=== PATIENT | female | born 1965 | race Caucasian/White ===

== ENCOUNTER 2019-11-12 09:58 | Outpatient (CLI) | payer OTHER, BC, SELFPAY ==
--- NOTE | 2019-11-12 | US_ITS ---
WS: [id number] RIGHT LOWER EXTREMITY VENOUS DOPPLER ULTRASOUND HISTORY: PAIN, SWELLING RIGHT LOWER LEG COMPARISON: None available. Normal 2-D, Doppler and augmentation and compressibility throughout the lower extremity venous struct ures. Additional imaging through the proximal calf veins also reveal no thrombus. Limited evaluation of the greater saphenous vein is patent with no thrombus. US/ROR venous duplex LE RT IMPRESSION: No DVT RIGHT lower extremity.
== END 2019-11-12 09:59 | disposition home or self-care (01) ==
LOC: RADOUTREAD 12:53
PROVIDERS: Visit Provider Nurse Practitioner Family
DX: Z76.89 Persons encountering health services in other specified circumstances (principal)

== ENCOUNTER → 2020-04-07 14:58 | Outpatient (BNVA) | payer BC, SELFPAY | PROVIDERS: Visit Provider Nurse Practitioner Family | DX: E03.9 Hypothyroidism, unspecified (principal); Z13.6 Encounter for screening for cardiovascular disorders; Z12.39 Encounter for other screening for malignant neoplasm of breast; L98.9 Disorder of the skin and subcutaneous tissue, unspecified; B07.8 Other viral warts; Z12.11 Encounter for screening for malignant neoplasm of colon; M15.9 Polyosteoarthritis, unspecified; G47.00 Insomnia, unspecified; Z68.31 Body mass index [BMI] 31.0-31.9, adult; F17.211 Nicotine dependence, cigarettes, in remission | CPT/HCPCS: 80053; 80061; 84443; 85025 ==

== ENCOUNTER → 2020-06-01 13:33 | Outpatient (BNVA) | payer BC, SELFPAY | PROVIDERS: Referring Provider Nurse Practitioner Family; Visit Provider Dermatology | DX: B07.8 Other viral warts (principal); D48.5 Neoplasm of uncertain behavior of skin; L57.0 Actinic keratosis; D48.9 Neoplasm of uncertain behavior, unspecified | CPT/HCPCS: 11900; 17000; 17003; 88304; 88305; 99203; 99204 ==

== ENCOUNTER → 2020-06-15 15:38 | Outpatient (BNVA) | payer BC, SELFPAY | PROVIDERS: Visit Provider Dermatology | DX: L92.0 Granuloma annulare (principal); B07.8 Other viral warts | CPT/HCPCS: 99212 ==

== ENCOUNTER → 2020-08-01 11:00 | Outpatient (BNVA) | payer BC, SELFPAY | PROVIDERS: Visit Provider Family Medicine | DX: E03.9 Hypothyroidism, unspecified (principal); E78.5 Hyperlipidemia, unspecified; G47.00 Insomnia, unspecified; J01.00 Acute maxillary sinusitis, unspecified; J20.9 Acute bronchitis, unspecified | CPT/HCPCS: 80053; 80061; 84443; 85025 ==

== ENCOUNTER → 2020-12-21 17:21 | Outpatient (BNVA) | payer BC, SELFPAY | PROVIDERS: Visit Provider Nurse Practitioner Family | DX: R10.9 Unspecified abdominal pain (principal); E03.9 Hypothyroidism, unspecified; R73.9 Hyperglycemia, unspecified | CPT/HCPCS: 80053; 81000; 83036; 84443; 85025; 87086 ==

== ENCOUNTER → 2021-05-23 13:23 | Outpatient (BNVA) | payer BC, SELFPAY | PROVIDERS: Visit Provider Orthopaedic Surgery | DX: M54.5 Low back pain (principal); M48.061 Spinal stenosis, lumbar region without neurogenic claudication; M43.16 Spondylolisthesis, lumbar region | CPT/HCPCS: 72110 ==

== ENCOUNTER 2021-06-27 09:18 | Outpatient (CLI) | payer BC, SELFPAY ==
--- NOTE | 2021-06-27 09:30 | MR_ITS ---
WS: [id number] MRI LUMBAR SPINE NONCONTRAST HISTORY: Chronic low back pain. Legs are weak and fatigued. COMPARISON: 07/03/2016. TECHNIQUE: Sagittal and axial multisequence imaging is submitted. C5 retrolisthesis by 4 mm. Disc and osteophyte contacting the ventral cervical cord at C5-6 with mild stenosis. L4 anterolisthesis by 3 mm. Similar to the prior examination. Very mild disc space desiccation but no narrowing throughout the lumbar spine. No acute marrow edema or fracture. Conus terminates normally at L1-2 disc level. L1-L2: Very mild ligamentum flavum and facet arthritis. No stenosis. L2-L3: Mild annular disc bulging and osteophytic ridging. LEFT foraminal disc protrusion with annular fissure similar to the prior examination. There is mild ligamentum flavum and facet arthritis with f luid in the facet joints. Mild narrowing of the central canal and subarticular recesses. L3-L4: Mild diffuse annular disc bulging and osteophytic ridging. Moderate ligamentum flavum hypertro phy and mild facet arthritis. Small fissures are noted within the far lateral LEFT disc. There is mark y minimal narrowing of the subarticular recesses. No high-grade stenosis. L4-L5: Moderate annular disc bulging and osteophytic ridging. Moderate ligamentum flavum hypertrophy and facet arthritis. Fluid in the facet joints bilaterally. Asymmetric osteophyte encroaching into th e LEFT lateral recess and contacting the nerve roots. There is significant narrowing of the LEFT late ral recess and subarticular foramen due to combination of findings. Only mild RIGHT subarticular rece ss narrowing. Mild LEFT foraminal narrowing. L5-S1: Mild annular disc bulge without stenosis. MR/MR lumbar spine wo con* [id number] IMPRESSION: 1. Asymmetric ligamentum flavum hypertrophy and facet joint arthritis at L4-5. Asymmetric osteophyte encroachment into the LEFT lateral recess and subarticul ar recess causing significant encroachment upon the traversing L5 nerve root. Significant stenosis of the LEFT lateral recess and LEFT subarticular recess. 2. Moderate facet joint osteoarthritis at L4-5. 3. Mild central and subarticular recess stenosis at L2-3. 4. Fluid in the facet joints at L2-3, L4-5 and L5-S1.
== END 2021-06-27 09:19 | disposition home or self-care (01) ==
LOC: RADSHAW 09:23
PROVIDERS: PCP Family Medicine; Visit Provider Orthopaedic Surgery
DX: G89.29 Other chronic pain (principal); R53.1 Weakness; M47.816 Spondylosis without myelopathy or radiculopathy, lumbar region; M48.061 Spinal stenosis, lumbar region without neurogenic claudication
CPT/HCPCS: 72148

== ENCOUNTER → 2021-08-07 11:30 | Outpatient (BNVA) | payer BC, SELFPAY | PROVIDERS: PCP Family Medicine; Visit Provider Nurse Practitioner Family | DX: E78.5 Hyperlipidemia, unspecified (principal); R73.9 Hyperglycemia, unspecified | CPT/HCPCS: 80053; 80061; 82306; 82607; 83036; 83721; 84443; 85025 ==

== ENCOUNTER → 2022-03-05 13:09 | Outpatient (BNVA) | payer OTHER, SELFPAY | PROVIDERS: PCP Family Medicine; Visit Provider Nurse Practitioner Family | DX: R30.0 Dysuria (principal); R73.9 Hyperglycemia, unspecified; R14.0 Abdominal distension (gaseous); E78.5 Hyperlipidemia, unspecified; K59.09 Other constipation; N39.0 Urinary tract infection, site not specified; Z78.9 Other specified health status | CPT/HCPCS: 80053; 83036 ==

== ENCOUNTER → 2022-03-16 08:46 | Outpatient (BNVA) | payer OTHER, SELFPAY | PROVIDERS: PCP Family Medicine; Visit Provider Nurse Practitioner Family | DX: K59.09 Other constipation (principal); R14.0 Abdominal distension (gaseous) | CPT/HCPCS: 74018 ==

== ENCOUNTER 2022-03-16 10:04 | Emergency (ER) | payer OTHER, SELFPAY ==
[2022-03-16 11:09] VITALS: BP 115/86; PULSE 95; RESP 14; TEMP 36.8; O2SAT 96; BMI 28.8
--- NOTE | 2022-03-16 11:19 | US_ITS ---
WS: [id number] RIGHT UPPER QUADRANT ULTRASOUND HISTORY: upper abd pain COMPARISON: None available. Liver: 28.0 cm in length. Markedly enlarged liver. Abnormal liver with multiple hypoechoic masses. He terogeneous liver with no bile duct dilatation. Numerous masses within the liver superimposed on a ba ckground of hepatic steatosis. Large area of decreased attenuation measuring 9.2 x 7.6 x 4.0 cm. Diff erential includes metastatic site or hepatic fatty sparing. There are additional smaller more well-ro unded nodules which are suspicious for metastatic disease. Portal Vein: Normal hepatopetal flow with monophasic waveform. Gallbladder: Normally distended gallbladder with no stones or wall thickening. CBD: 0.5 cm Pancreas: Not well visualized. Right kidney: 11.3 cm in length. Normal size and echogenicity. No hydronephrosis or mass. Aorta and IVC: Unremarkable abdominal aorta and IVC. No ascites. US/US gall bladder [id number] IMPRESSION: 1. Abnormal liver. Liver is markedly enlarged and heterogeneous. Highly suspic ious for metastatic liver disease with additional areas probably related to licha atosis and fatty sparing. Recommend follow-up CT abdomen and pelvis with IV and oral contrast. 2. Negative gallbladder.
[2022-03-16 11:41] LABS: Basophils # 0.1 10^3/uL (0.0-0.1); Basophils % 0.6 %; Eosinophils # 0.1 10^3/uL (0.0-0.8); Eosinophils % 1.3 %; Hemoglobin 13.7 g/dL (11.5-15.3); Lymphocytes # 0.9 10^3/uL (0.8-4.8); Mean Corpuscular HGB Conc 33.4 g/dL (30.0-36.0); Mean Corpuscular Hemoglobin 26.4 pg (28.0-34.0); Mean Corpuscular Volume 79.2 fl (81-99); Mean Platelet Volume 11.8 fL (7.4-10.4); Monocytes # 0.9 10^3/uL (0.2-0.9); Monocytes % 10.1 %; Neutrophils # 6.59 10^3/uL (1.8-7.7); Neutrophils % 77.2 %; Nucleated Red Blood Cells % 0 %; Platelet Count 194 10^3/cmm (130-400); Red Blood Count 5.18 10^6/uL (4.1-5.3); Red Cell Distribution Width 12.9 % (12.1-15.1); White Blood Count 8.5 10^3/uL (4.0-10.0)
--- NOTE | 2022-03-16 11:54 | CTR_ITS ---
PROCEDURE INFORMATION: Exam: CT Abdomen And Pelvis Without Contrast Exam date and time: 03/16/2022 12:13 PM Age: 57 years old Clinical indication: Abdominal pain; Localized; Upper; Prior surgery; Surgery date: 6+ months; Surgery type: Hyster, L hip; Patient HX: HX liver mets; Additional info: Abdominal mets TECHNIQUE: Imaging protocol: Computed tomography of the abdomen and pelvis without contrast. Axial, coronal and sagittal reformatted images were created and reviewed. Radiation optimization: All CT scans at this facility use at least one of these dose optimization techniques: automated exposure control; mA and/or kV adjustment per patient size (includes targeted exams where dose is matched to clinical indication); or iterative reconstruction. COMPARISON: CR XR KUB [id number] 03/16/2022 8:52 AM RADIATION DOSE METRICS: Total DLP (mGy-cm): 1760.82 FINDINGS: Lungs: Linear stranding and groundglass in the lingula, likely due to atelectasis and/or scarring. Liver: Mild hepatomegaly. Innumerable low-density hepatic lesions, compatible with the history metastatic disease. Gallbladder and bile ducts: No radiodense gallstones. No biliary ductal dilatation. Pancreas: Unremarkable. Spleen: Coarse calcified splenic granulomata. Adrenal glands: Normal. No mass. Kidneys and ureters: Punctate nonobstructing right renal calculus. No hydronephrosis. Stomach and bowel: Scattered colonic diverticula without evidence of diverticulitis. No obstruction. No bowel wall thickening. No pneumatosis. Appendix: Normal. Intraperitoneal space: No free fluid. No organized fluid collection. No free air. Vasculature: Mild to moderate atherosclerotic disease. No aneurysm. Lymph nodes: No pathologically enlarged lymph nodes. Urinary bladder: Decompressed urinary bladder, which limits evaluation for wall thickening. Reproductive: Status post hysterectomy. Bones/joints: No acute osseous abnormality. Osteopenia. Mild degenerative changes. Total left hip arthroplasty in place. 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 Soft tissues: Unremarkable. CT/CT abdomen pelvis wo con [id number] IMPRESSION: 1. Limited noncontrast examination. 2. Mild hepatomegaly with innumerable low-density hepatic lesions, compatible with the history metastatic disease. 3. Additional findings, as above.
[2022-03-16 11:56] LABS: Alanine Aminotransferase 75 U/L (0-33); Albumin Level 4.5 g/dL (3.5-5.2); Alkaline Phosphatase 260 IU/L (35-105); Anion Gap 19.5 (5-19); Aspartate Amino Transferase 165 U/L (0-32); Blood Urea Nitrogen 11 mg/dL (6-20); Calcium 9.1 mg/dL (8.5-10.5); Carbon Dioxide 22 mmol/L (22-29); Chloride 100 mmol/L (98-107); Glomerular Filtration Rate 86.6 mL/min (90-130); Glucose 87 mg/dL (65-115); Lipase 37 U/L (13-60); Osmolality Calculated 283 mOsm/kg (285-295); Potassium 4.5 mmol/L (3.5-5.1); Sodium 137 mmol/L (136-145); Total Bilirubin 0.6 mg/dL (0.15-1.2); Total Protein 7.5 g/dL (6.6-8.7)
[2022-03-16] MEDS: sodium chloride 0.9% 1,000 ML 999 ML IV (12:17)
[2022-03-16] MEDS: famotidine 20 mg/2 mL INJ IVP (12:17)
--- NOTE | 2022-03-16 12:19 | ED_ITS ---
HPI - General Adult General: Chief complaint: Abdominal Pain Stated complaint: abdomen pain Time Seen by Provider: 03/16/22 10:07 History of Present Illness: Patient is a 57-year-old female history of prior hysterectomy presenting to the emergency room with complaints of midepigastric right upper quadrant abdominal pain for the last month is worsening. Patient went to see her nurse practitioner was told to come to the emergency room for further work-up. Patient reports nausea and emesis with and without p.o. intake. Patient says that she has had multiple episodes throughout the day. Patient denies any fever reports subjective chills at home. Patient denies any diarrhea melena/hematochezia. Patient denies any urinary complaints, brief history of renal colic. Patient also denies any cough, runny nose, sore throat, chest pain or shortness of breath. Onset:1 month ago Duration:1 month Location:home Severity:moderate Associated symptoms: Reports nausea and vomiting; Deny chest pain, dyspnea, rash or palpitations Review of Systems Const: Denies: fever(s) or chills Eyes: Denies: change in vision ENMT: Denies: mouth pain Card: Denies: chest pain or palpitations Resp: Denies: dyspnea or non-productive cough GI: Reports: abdominal pain, nausea and vomiting; Denies: diarrhea : Denies: dysuria Musc: Denies: extremity pain Skin/Breast: Denies: rash or new lesions Neuro: Denies: weakness in extremities Psych: Reports: other (Normal mood) Feroz/Lymph: Denies: easy bruising PFSH ED PFSH: Medical History Genital herpes History of nonmelanoma skin cancer History of osteoarthritis Hypothyroidism (acquired) Surgical History History of hysterectomy History of right hip replacement Family History Brother Cancer Father Cancer Social History Smoking and tobacco status: former smoker Second hand smoke exposure: No Alcohol intake: never Lives independently: Yes Household members: significant other and children Marital status: Single service: No Current occupational status: employed Current occupation: [employer] History of recent travel: No Current gender identity: Female Physical Exam Const: COMMON NORMALS: alert HENMT: COMMON NORMALS: atraumatic HEAD & SCALP: atraumatic MOUTH: moist mucous membranes not abnormal Eye: COMMON NORMALS: EOMs intact bilaterally and conjunctivae normal CONJUNCTIVA: Yes conjunctivae normal Neck/C-Spine: COMMON NORMALS: full ROM and supple Resp: COMMON NORMALS: normal respiratory effort and clear to auscultation bilaterally AUSCULTATION: clear to auscultation bilaterally Cardio: COMMON NORMALS: regular rate RATE: regular rate GI: COMMON NORMALS: Soft to palpation PALPATION: Yes Soft to palpation OTHER: + Moderate midepigastric and right upper quadrant TTP. NO guarding rebound, guarding, rigidity. No CVA tenderness to percussion. Neg Jackson/Neg McBurney's point tenderness, no suprabupic tenderness to palpation. Extremity: COMMON NORMALS: full ROM Neuro: SENSORIUM/ORIENTATION: Yes alert MOTOR EXAM: No Abnormal motor strength present and Other motor observations present (no focal motor deficits) Psych: COMMON NORMALS: speech normal SPEECH: Yes normal speech MOOD & AFFECT: Yes euthymic mood Course Vital Signs: Vital signs: Vital Signs Temperature 98.2 F 03/16/22 11:09 Pulse Rate 74 03/16/22 13:50 Respiratory Rate 18 03/16/22 13:50 Blood Pressure 127/75 03/16/22 13:50 Pulse Oximetry 96 03/16/22 13:50 MDM - General Adult Medical Decision Making 57-year-old female with a history of prior hysterectomy presenting to emergency room with complaints of right upper quadrant midepigastric Edwardo pain x1 month worsening. On exam, patient is moderate tenderness palpation to the mid affected right upper quadrant. Negative Jackson sign. No guarding no rebound tenderness. No CVA tenderness. Patient continues to be hemodynamically stable. White count today of 8.5. Ultrasound showed diffuse liver disease consistent with possible metastatic findings. CT abdomen pelvis showed metatastic lesions She received morphine the emergency room reports pain is improved. Findings of metastatic findings discussed extensively with patient. Patient received a copy of the CT report with the documented findings. Patient is instructed to follow up urgently with specialists. I have given patient follow up with our counseling case manager to be seen by our outpatient oncology for new findings of cancer. Patient aware of a call from our counseling case manager to schedule for appointment(s) and verbalizes understanding of the importance of following up. Rx tylenol PRN abd pain, maalox/pepcid PRN dyspepsia, and zofran PRN nausea/vomiting Disposition: Discharge. Patient counseled regarding diagnostic impression, treatment plan. Patient given ED strict return precautions to return for continuation, worsening, or development of new symptoms. Instructed to f/u w/ PCP regarding symptoms today. Patient verbalized understanding. Lab Data : 03/16/22 11:32 03/16/22 11:32 Radiology Impressions Gallbladder Ultrasound 03/16/22 11:19 IMPRESSION: 1. Abnormal liver. Liver is markedly enlarged and heterogeneous. Highly suspicious for metastatic liver disease with additional areas probably related to steatosis and fatty sparing. Recommend follow-up CT abdomen and pelvis with IV and oral contrast. 2. Negative gallbladder. Abdomen/Pelvis CT 03/16/22 11:54 IMPRESSION: 1. Limited noncontrast examination. 2. Mild hepatomegaly with innumerable low-density hepatic lesions, compatible with the history metastatic disease. 3. Additional findings, as above. Laboratory Results WBC 8.5 10^3/uL (4.0-10.0) 03/16/22 11:32 RBC 5.18 10^6/uL (4.1-5.3) 03/16/22 11:32 Hgb 13.7 g/dL (11.5-15.3) 03/16/22 11:32 Hct 41.0 % (37.0-47.0) 03/16/22 11:32 MCV 79.2 fl (81-99) L 03/16/22 11:32 MCH 26.4 pg (28.0-34.0) L 03/16/22 11:32 MCHC 33.4 g/dL (30.0-36.0) D 03/16/22 11:32 RDW 12.9 % (12.1-15.1) 03/16/22 11:32 Plt Count 194 10^3/cmm (130-400) 03/16/22 11:32 MPV 11.8 fL (7.4-10.4) H 03/16/22 11:32 Neut % (Auto) 77.2 % 03/16/22 11:32 Lymph % (Auto) 10.0 % 03/16/22 11:32 Seneca % (Auto) 10.1 % 03/16/22 11:32 Eos % (Auto) 1.3 % 03/16/22 11:32 Baso % (Auto) 0.6 % 03/16/22 11:32 Neut # (Auto) 6.59 10^3/uL (1.8-7.7) 03/16/22 11:32 Lymph # (Auto) 0.9 10^3/uL (0.8-4.8) 03/16/22 11:32 Seneca # (Auto) 0.9 10^3/uL (0.2-0.9) 03/16/22 11:32 Eos # (Auto) 0.1 10^3/uL (0.0-0.8) 03/16/22 11:32 Baso # (Auto) 0.1 10^3/uL (0.0-0.1) 03/16/22 11:32 Nucleated RBC % (auto) 0 % 03/16/22 11:32 Nucleated RBCs # 0.0 /100WBC 03/16/22 11:32 Sodium 137 mmol/L (136-145) 03/16/22 11:32 Potassium 4.5 mmol/L (3.5-5.1) 03/16/22 11:32 Chloride 100 mmol/L (98-107) 03/16/22 11:32 Carbon Dioxide 22 mmol/L (22-29) 03/16/22 11:32 Anion Gap 19.5 (5-19) H 03/16/22 11:32 BUN 11 mg/dL (6-20) 03/16/22 11:32 Creatinine 0.7 mg/dL (0.5-0.9) 03/16/22 11:32 GFR Calculation 86.6 mL/min (90-130) L 03/16/22 11:32 Glucose 87 mg/dL (65-115) 03/16/22 11:32 Calculated Osmolality 283 mOsm/kg (285-295) L 03/16/22 11:32 Calcium 9.1 mg/dL (8.5-10.5) 03/16/22 11:32 Total Bilirubin 0.6 mg/dL (0.15-1.2) 03/16/22 11:32 AST 165 U/L (0-32) H 03/16/22 11:32 ALT 75 U/L (0-33) H 03/16/22 11:32 Alkaline Phosphatase 260 IU/L (35-105) H 03/16/22 11:32 Total Protein 7.5 g/dL (6.6-8.7) 03/16/22 11:32 Albumin 4.5 g/dL (3.5-5.2) 03/16/22 11:32 Globulin 3.0 g/dL (1.3-4.6) 03/16/22 11:32 Lipase 37 U/L (13-60) 03/16/22 11:32 Urine Color Yellow (Yellow) 03/16/22 11:32 Urine Appearance Clear (CLEAR) 03/16/22 11:32 Urine pH 5 (5-7) 03/16/22 11:32 Ur Specific Wilson 1.020 (1.005-1.030) 03/16/22 11:32 Urine Protein 1+ (Negative) H 03/16/22 11:32 Urine Glucose (UA) Norm (Normal) 03/16/22 11:32 Urine Ketones 1+ (Negative) H 03/16/22 11:32 Urine Blood 2+ (Negative) H 03/16/22 11:32 Urine Nitrate Negative (Negative) 03/16/22 11:32 Urine Bilirubin 1+ (Negative) H 03/16/22 11:32 Urine Urobilinogen 4 mg/dL (Negative) H 03/16/22 11:32 Ur Leukocyte Esterase Trace (Negative) H 03/16/22 11:32 Urine RBC 5-10 /hpf (0-2) H 03/16/22 11:32 Urine WBC 0-4 /hpf (0-5) H 03/16/22 11:32 Ur Squamous Epith Cells 10-15 /hpf (0-5) H 03/16/22 11:32 Amorphous Sediment Not Reportable 03/16/22 11:32 Urine Bacteria Trace /hpf (NONE) 03/16/22 11:32 Imaging Data Other Imaging: Radiologist's impression: [address] [address] [address] Scan Report Signed Patient: Olivia Cross Unit #: [id number] : 1965 Age/Sex: 57 / F ADM Date: 03/16/22 Loc: ER Room/Bed: Attending Dr: Ordering Provider/Ordering MD: Eulalia Jacobs MD Date of Service: 03/16/22 Procedure(s): CT abdomen pelvis wo con [id number] Accession Number(s): [id number] Report Number: [id number] PROCEDURE INFORMATION: Exam: CT Abdomen And Pelvis Without Contrast Exam date and time: 03/16/2022 12:13 PM Age: 57 years old Clinical indication: Abdominal pain; Localized; Upper; Prior surgery; Surgery date: 6+ months; Surgery type: Hyster, L hip; Patient HX: HX liver mets; Additional info: Abdominal mets TECHNIQUE: Imaging protocol: Computed tomography of the abdomen and pelvis without contrast. Axial, coronal and sagittal reformatted images were created and reviewed. Radiation optimization: All CT scans at this facility use at least one of these dose optimization techniques: automated exposure control; mA and/or kV adjustment per patient size (includes targeted exams where dose is matched to clinical indication); or iterative reconstruction. COMPARISON: CR XR KUB [id number] 03/16/2022 8:52 AM RADIATION DOSE METRICS: Total DLP (mGy-cm): 1760.82 FINDINGS: Lungs: Linear stranding and groundglass in the lingula, likely due to atelectasis and/or scarring. Liver: Mild hepatomegaly. Innumerable low-density hepatic lesions, compatible with the history metastatic disease. Gallbladder and bile ducts: No radiodense gallstones. No biliary ductal dilatation. Pancreas: Unremarkable. Spleen: Coarse calcified splenic granulomata. Adrenal glands: Normal. No mass. Kidneys and ureters: Punctate nonobstructing right renal calculus. No hydronephrosis. Stomach and bowel: Scattered colonic diverticula without evidence of diverticulitis. No obstruction. No bowel wall thickening. No pneumatosis. Appendix: Normal. Intraperitoneal space: No free fluid. No organized fluid collection. No free air. Vasculature: Mild to moderate atherosclerotic disease. No aneurysm. Lymph nodes: No pathologically enlarged lymph nodes. Urinary bladder: Decompressed urinary bladder, which limits evaluation for wall thickening. Reproductive: Status post hysterectomy. Bones/joints: No acute osseous abnormality. Osteopenia. Mild degenerative changes. Total left hip arthroplasty in place. 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 Soft tissues: Unremarkable. CT/CT abdomen pelvis wo con [id number] IMPRESSION: 1. Limited noncontrast examination. 2. Mild hepatomegaly with innumerable low-density hepatic lesions, compatible with the history metastatic disease. 3. Additional findings, as above. ? Dictated By: Manuel Jorge MD Signed By: Manuel Jorge MD Signed Date/Time: 03/16/22 1237 DD/ [address] [address] Ultrasound Report Signed Patient: Olivia Cross Unit #: [id number] : 1965 Age/Sex: 57 / F ADM Date: 03/16/22 Loc: ER Room/Bed: Attending Dr: Ordering Provider/Ordering MD: Eulalia Jacobs MD Date of Service: 03/16/22 Procedure(s): US gall bladder [id number] Accession Number(s): [id number] Report Number: [id number] WS: [id number] RIGHT UPPER QUADRANT ULTRASOUND HISTORY: upper abd pain COMPARISON: None available. Liver: 28.0 cm in length. Markedly enlarged liver. Abnormal liver with multiple hypoechoic masses. Heterogeneous liver with no bile duct dilatation. Numerous masses within the liver superimposed on a background of hepatic steatosis. Large area of decreased attenuation measuring 9.2 x 7.6 x 4.0 cm. Differential includes metastatic site or hepatic fatty sparing. There are additional smaller more well-rounded nodules which are suspicious for metastatic disease. Portal Vein: Normal hepatopetal flow with monophasic waveform. Gallbladder: Normally distended gallbladder with no stones or wall thickening. CBD: 0.5 cm Pancreas: Not well visualized. Right kidney: 11.3 cm in length. Normal size and echogenicity. No hydronephrosis or mass. Aorta and IVC: Unremarkable abdominal aorta and IVC. No ascites. US/US gall bladder [id number] IMPRESSION: ? 1.? Abnormal liver. Liver is markedly enlarged and heterogeneous. Highly suspicious for metastatic liver disease with additional areas probably related to steatosis and fatty sparing. Recommend follow-up CT abdomen and pelvis with IV and oral contrast. 2.? Negative gallbladder. ? Dictated By: Mary Delaney DO Signed By: Rhett,Mary A DO Signed Date/Time: 03/16/22 1224 DD/ 1220 Discharge Plan Discharge Patient Disposition: Home Clinical Impression: Abdominal pain, Metastatic cancer to liver Condition: Stable Prescriptions: New acetaminophen 500 mg tablet 500 mg PO Q6H PRN (Reason: pain) 5 Days Qty: 20 0RF Pepcid 20 mg tablet 20 mg PO BID PRN (Reason: abdominal pain) 10 Days Qty: 20 0RF ondansetron 4 mg tablet,disintegrating 4 mg PO TID PRN (Reason: nausea and vomiting) 4 Days Qty: 12 0RF Maalox Advanced 1,000-60 mg tablet,chewable 1 tab PO TID PRN (Reason: abdominal pain) 7 Days Qty: 21 0RF Percocet 5-325 mg tablet 1 tab PO Q8H PRN (Reason: pain) Qty: 9 0RF No Action cholecalciferol (vitamin D3) 25 mcg (1,000 unit) capsule 2,000 unit PO DAILY 0RF magnesium 30 mg tablet 90 mg PO DAILY 0RF Candin FDA STANDARD allergen 0.1 ml intradermal ONCE Qty: 1 0RF valacyclovir 500 mg tablet See Rx Instructions .ROUTE .COMPLEX Qty: 60 3RF Dose Instruction: TAKE 1 TABLET BY MOUTH TWO TIMES A DAY Rx Instructions: TAKE 1 TABLET BY MOUTH TWO TIMES A DAY imiquimod 5 % cream in packet 1 applic topical ONCE Qty: 24 1RF Rx Instructions: Apply to affected area on nose Saturday through Saturday only for 6 weeks. cephalexin 500 mg capsule 500 mg PO BID 7 Days Qty: 14 0RF metformin 500 mg tablet See Rx Instructions .ROUTE .COMPLEX Qty: 120 2RF Dose Instruction: TAKE 1 TABLET BY MOUTH IN THE EVENING FOR 1 WEEK, 1 TABLET TWO TIMES A DAY FOR 1 WEEK, 1 TABLET IN THE MORNING & 2 IN THE EVENING FOR 1 WEEK, 2 TABLETS TWO TIMES A DAY Rx Instructions: TAKE 1 TABLET BY MOUTH IN THE EVENING FOR 1 WEEK, 1 TABLET TWO TIMES A DAY FOR 1 WEEK, 1 TABLET IN THE MORNING & 2 IN THE EVENING FOR 1 WEEK, 2 TABLETS TWO TIMES A DAY ondansetron HCl 4 mg tablet 4 mg PO Q6H PRN (Reason: nausea and vomiting) Qty: 90 0RF hydrocodone-acetaminophen 7.5-325 mg tablet 1 tab PO Q6H PRN (Reason: pain) 7 Days Qty: 21 0RF citalopram 10 mg tablet See Rx Instructions .ROUTE .COMPLEX Qty: 90 1RF Dose Instruction: TAKE ONE TABLET BY MOUTH EVERY DAY Rx Instructions: TAKE ONE TABLET BY MOUTH EVERY DAY levothyroxine 88 mcg tablet See Rx Instructions .ROUTE .COMPLEX Qty: 90 1RF Dose Instruction: TAKE ONE TABLET BY MOUTH EVERY DAY Rx Instructions: TAKE ONE TABLET BY MOUTH EVERY DAY cyclobenzaprine 10 mg tablet See Rx Instructions .ROUTE .COMPLEX Qty: 30 1RF Dose Instruction: TAKE 1 TABLET BY MOUTH DAILY Rx Instructions: TAKE 1 TABLET BY MOUTH DAILY diclofenac sodium 75 mg tablet,delayed release (DR/EC) See Rx Instructions .ROUTE .COMPLEX Qty: 60 1RF Dose Instruction: TAKE 1 TABLET BY MOUTH TWO TIMES A DAY Rx Instructions: TAKE 1 TABLET BY MOUTH TWO TIMES A DAY trazodone 100 mg tablet See Rx Instructions .ROUTE .COMPLEX Qty: 90 0RF Dose Instruction: TAKE ONE TABLET BY MOUTH EVERY DAY AT BEDTIME Rx Instructions: TAKE ONE TABLET BY MOUTH EVERY DAY AT BEDTIME Discharge Orders: Discharge ED (Routine); Ordered 03/16/22 Ordered By: Eulalia Jacobs Referrals: Nicole Rene MD [Primary Care Provider] - Discharge Diet: Advance as tolerated Discharge Activity: Increase activity as tolerated Patient Instructions: Abdominal Pain (ED) Activity Restrictions/Additional Instructions: Please come back if you have any worsening abdominal pain, fever or chills, nausea or vomiting, diarrhea, blood in the stool, inability hold down liquid or solids, or any new concerning complaints. Here's a copy of your CT report: [address] [address] [address] Scan Report Signed Patient: Olivia Cross Unit #: [id number] : 1965 Age/Sex: 57 / F ADM Date: 03/16/22 Loc: ER Room/Bed: Attending Dr: Ordering Provider/Ordering MD: Eulalia Jacobs MD Date of Service: 03/16/22 Procedure(s): CT abdomen pelvis con [id number] Accession Number(s): [id number] Report Number: [id number] PROCEDURE INFORMATION: Exam: CT Abdomen And Pelvis Without Contrast Exam date and time: 03/16/2022 12:13 PM Age: 57 years old Clinical indication: Abdominal pain; Localized; Upper; Prior surgery; Surgery date: 6+ months; Surgery type: Hyster, L hip; Patient HX: HX liver mets; Additional info: Abdominal mets TECHNIQUE: Imaging protocol: Computed tomography of the abdomen and pelvis without contrast. Axial, coronal and sagittal reformatted images were created and reviewed. Radiation optimization: All CT scans at this facility use at least one of these dose optimization techniques: automated exposure control; mA and/or kV adjustment per patient size (includes targeted exams where dose is matched to clinical indication); or iterative reconstruction. COMPARISON: CR XR KUB [id number] 03/16/2022 8:52 AM RADIATION DOSE METRICS: Total DLP (mGy-cm): 1760.82 FINDINGS: Lungs: Linear stranding and groundglass in the lingula, likely due to atelectasis and/or scarring. Liver: Mild hepatomegaly. Innumerable low-density hepatic lesions, compatible with the history metastatic disease. Gallbladder and bile ducts: No radiodense gallstones. No biliary ductal dilatation. Pancreas: Unremarkable. Spleen: Coarse calcified splenic granulomata. Adrenal glands: Normal. No mass. Kidneys and ureters: Punctate nonobstructing right renal calculus. No hydronephrosis. Stomach and bowel: Scattered colonic diverticula without evidence of diverticulitis. No obstruction. No bowel wall thickening. No pneumatosis. Appendix: Normal. Intraperitoneal space: No free fluid. No organized fluid collection. No free air. Vasculature: Mild to moderate atherosclerotic disease. No aneurysm. Lymph nodes: No pathologically enlarged lymph nodes. Urinary bladder: Decompressed urinary bladder, which limits evaluation for wall thickening. Reproductive: Status post hysterectomy. Bones/joints: No acute osseous abnormality. Osteopenia. Mild degenerative changes. Total left hip arthroplasty in place. 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 Soft tissues: Unremarkable. CT/CT abdomen pelvis wo con [id number] IMPRESSION: 1. Limited noncontrast examination. 2. Mild hepatomegaly with innumerable low-density hepatic lesions, compatible with the history metastatic disease. 3. Additional findings, as above. ? Dictated By: Manuel Jorge MD Signed By: Manuel Jorge MD Signed Date/Time: 03/16/22 1237 DD/ 1213 Coding Level of Care Code ED Principal Software Engineer for Chg Fwd Exam Comprehensive
[2022-03-16 12:22] LABS: Bilirubin Urine 1+ (Negative); Blood Urine 2+ (Negative); Glucose Urine UA Norm (Normal); Ketones Urine 1+ (Negative); Nitrate Urine Negative (Negative); Protein Urine 1+ (Negative); Urine Appearance Clear (CLEAR); Urine Color Yellow (Yellow); pH Urine 5 (5-7)
[2022-03-16 12:23] LABS: Add Urine Culture? No; Add Urine Microscopic? YES; Bacteria Urine TRACE /hpf; Leukocyte Esterase Urine Trace (Negative); Urobilinogen Urine 4 mg/dL (Negative); WBC Urine 0-4 /hpf (0-5)
[2022-03-16 12:30] VITALS: RESP 18; O2SAT 98
[2022-03-16] MEDS: morphine 4 mg/mL SDV 1 mL IVP (12:30)
[2022-03-16 13:50] VITALS: BP 127/75; PULSE 74; RESP 18; O2SAT 96
--- NOTE | 2022-03-19 10:15 | PC.SOCIAL ---
Oncology Follow Up Spoke with Sandra at oncology; she reports that patient will have to have a biopsy prior to being able to schedule appointment. Message left with Dr. Rene's office requesting a call back. Updated Sandra at oncology, she states that she will also reach out to Dr. Rene's office and print everything for the oncology physician to review.
--- NOTE | 2022-03-19 12:23 | PC.SOCIAL ---
Oncology F/U Spoke with patient about oncology follow up; she states that she went to ER in [place] on 03/17 and prefers to stick with [place] at this time. Updated Lizeth at oncology at well as Dr. Rene's office.
== END 2022-03-16 13:52 | disposition home or self-care (01) ==
PROVIDERS: Emergency Medicine; Emergency Provider Emergency Medicine; PCP Family Medicine
DX: R10.9 Unspecified abdominal pain (principal); C78.7 Secondary malignant neoplasm of liver and intrahepatic bile duct; Z79.84 Long term (current) use of oral hypoglycemic drugs; Z87.891 Personal history of nicotine dependence; Z85.828 Personal history of other malignant neoplasm of skin
CPT/HCPCS: 74176; 76705; 80053; 80061; 80074; 81001; 82150; 83690; 84443; 85025; 96361; 96374; 96375; 99284; J2270; J3490; J7030